=== PATIENT | female | born 1995 | race Caucasian/White ===

== ENCOUNTER 2016-11-14 17:02 | Emergency (ER) | payer OTHER ==
[2016-11-14 17:24] VITALS: BP 133/78; PULSE 89; RESP 20; TEMP 99.9
[2016-11-14] MEDS ORDERED: IBUPROFEN 600 MG TAB PO STA (17:41)
[2016-11-14] MEDS ORDERED: ACETAMINOPHEN IV (For NPO) 1,000 MG in EMPTY BAG 1 BAG IVPB STA (17:41)
--- NOTE | 2016-11-14 17:55 | ED ---
Fever HPI - General Chief Complaint: Fever Stated Complaint: fever,throat pain Time Seen by Provider: 11/14/16 17:31 Source: patient, RN notes reviewed Mode of arrival: ambulatory Limitations: no limitations - History of Present Illness Initial Comments: 21-year-old female presents to the emergency department with a chief complaint of fever. Patient states she's had a fever on and off for the past 5 days. Patient states that she went to her doctor and she was started on some ALLERGY medications at home. Patient states that she has facial pressure. Patient states that she hasn't had any nausea vomiting that has had a cough cold runny nose. Patient states she is increased facial pressure when leaning forward. Patient states that she has not had any other symptoms at this time. Patient states she was concerned due to her continued fever and facial pain so she thought that she should be evaluated. Patient denies any recent shortness of breath, chest pain, back pain, abdominal pain, nausea vomiting, numbness or tingling, dysuria or hematuria, constipation or diarrhea, headaches or visual changes, or any other current symptoms. - Related Data Home Medications Medication Instructions Recorded Confirmed Cephalexin [Keflex] 250 mg PO QID 11/14/16 11/14/16 Diphenox-Atrop 2.5-0.025 mg 1 tab PO TID PRN 11/14/16 11/14/16 [Lomotil] Loratadine [Claritin] 10 mg PO DAILY 11/14/16 11/14/16 Ondansetron [Zofran ODT] 4 mg PO Q12H PRN 11/14/16 11/14/16 Promethazine 6.25MG/5Ml [Phenergan 6.25 - 12.5 mg PO QID PRN 11/14/16 11/14/16 Syrup] Allergies Allergy/AdvReac Type Severity Reaction Status Date / Time No Known Allergies Allergy Verified 11/14/16 17:46 Review of Systems ROS Statement: Those systems with pertinent positive or pertinent negative responses have been documented in the HPI. ROS Other: All systems not noted in ROS Statement are negative. Past Medical History Past Medical History: Asthma History of Any Multi-Drug Resistant Organisms: None Reported Past Surgical History: No Surgical Hx Reported Past Psychological History: Anxiety, Depression Smoking Status: Never smoker Past Alcohol Use History: None Reported Past Drug Use History: None Reported General Exam - General Exam Comments Initial Comments: General exam: Alert, active, comfortable in no apparent distress Head: Normocephalic, mild tenderness over the frontal and bilateral maxillary sinusitis Eyes: Normal reaction of pupils, equal size, normal range of extraocular motion Ears: normal external ear canals, pink tympanic membranes with normal cone of light Nose: clear with pink turbinates Throat: no erythema or exudates with normal sized tonsils Neck: no masses, no nuchal rigidity Chest: no chest wall deformity Lungs: equal air entry with no crackles or wheeze CVS: S1 and S2 normal with no audible mumurs, regular rhythm Abdomen: no hepatosplenomegaly, normal bowel sounds, no guarding or rigidity Spine: no scoliosis or deformity Skin: no rashes Neurological: No focal deficits, tone is normal in all 4 extremities Limitations: no limitations Course Vital Signs 11/14/16 17:23 Temperature 99.9 F H Pulse Rate 89 Respiratory 20 Rate Blood Pressure 133/78 O2 Sat by Pulse 99 Oximetry Medical Decision Making - Medical Decision Making 21-year-old female presents emergency Department chief complaint of cough cold and fever. This time patient is positive for influenza B. This time we discussed continuing symptom control. We discussed return parameters and follow -up. We discussed all the patient's questions. She stated that she understood all questions have been answered. At this time the patient will be discharged home. - Lab Data Lab Results 11/14/16 11/14/16 Range/Units 18:25 18:25 Influenza Type A RNA Not Detected (Not Detectd) Influenza Type B (PCR) Detected H (Not Detectd) Group A Strep Rapid Negative (Negative) - Radiology Data Radiology results: report reviewed, image reviewed Disposition Clinical Impression: Influenza B Disposition: HOME SELF-CARE Condition: Stable Instructions: Fever in Adults (ED), Influenza (ED) Additional Instructions: Please use medication as discussed. Please follow up with family doctor if symptoms have not improved over the next two days. Please return to the emergency room if your symptoms increase or worsen or for any other concerns. Referrals: Yariel Cruz MD [Primary Care Provider] - 1-2 days Time of Disposition: 19:01
[2016-11-14] MEDS ORDERED: ACETAMINOPHEN TAB 500 MG TAB PO STA (18:22)
--- NOTE | 2016-11-14 18:32 | XR ---
EXAMINATION TYPE: XR chest 2V DATE OF EXAM: 11/14/2016 6:24 PM COMPARISON: NONE HISTORY: Cough and congestion TECHNIQUE: Frontal and lateral views of the chest are obtained. FINDINGS: Heart and mediastinum are normal. Lungs are clear. There is mild thoracic dextroscoliosis. There is no pleural effusion. Bony thorax is intact. IMPRESSION: No cardiopulmonary disease.
== END 2016-11-14 22:00 | disposition home or self-care (01) ==
LOC: EC 17:02
DX: J10.1 Influenza due to other identified influenza virus with other respiratory manifestations (principal); J45.909 Unspecified asthma, uncomplicated; Z79.899 Other long term (current) drug therapy
CPT/HCPCS: 71020; 87081; 87430; 87502; 99283

== ENCOUNTER 2017-04-02 16:50 | Emergency (ER) | payer OTHER ==
[2017-04-02 16:54] VITALS: BP 111/74; PULSE 61; RESP 14; TEMP 98.5
[2017-04-02] MEDS ORDERED: BUPIVACAINE (PF) 0.5% 30 ML VIAL SQ STA (17:12)
--- NOTE | 2017-04-02 17:20 | ED ---
ENT HPI - General Chief complaint: Dental/Oral Stated complaint: Tooth Pain Time Seen by Provider: 04/02/17 16:58 Source: patient, RN notes reviewed, old records reviewed Mode of arrival: ambulatory Limitations: no limitations - History of Present Illness Initial comments: 21-year-old female present the ED chief complaint of right lower tooth pain for the past day. She reports that she thinks that her wisdom teeth are starting to come in. She states that she's had no fever or chills or difficulty opening or swelling. He reports that the pain is severe over the lower tooth is concerned there may be infection. She states she does have an appointment to see the dental clinic for possible removal.Patient denies any recent fever, chills, shortness of breath, chest pain, back pain, abdominal pain, nausea vomiting, numbness or tingling, dysuria or hematuria, constipation or diarrhea, headaches or visual changes, or any other current symptoms - Related Data Home Medications Medication Instructions Recorded Confirmed Cephalexin [Keflex] 250 mg PO QID 11/14/16 11/14/16 Diphenox-Atrop 2.5-0.025 mg 1 tab PO TID PRN 11/14/16 11/14/16 [Lomotil] Loratadine [Claritin] 10 mg PO DAILY 11/14/16 11/14/16 Ondansetron [Zofran ODT] 4 mg PO Q12H PRN 11/14/16 11/14/16 Promethazine 6.25MG/5Ml [Phenergan 6.25 - 12.5 mg PO QID PRN 11/14/16 11/14/16 Syrup] Previous Rx's Medication Instructions Recorded Acetaminophen-Codeine 300-30mg 1 tab PO Q6H PRN #15 tablet 04/02/17 [Tylenol #3] Penicillin V Potassium [Pen Vee K] 500 mg PO QID #40 tab 04/02/17 Allergies Allergy/AdvReac Type Severity Reaction Status Date / Time No Known Allergies Allergy Verified 04/02/17 16:54 Review of Systems ROS Statement: Those systems with pertinent positive or pertinent negative responses have been documented in the HPI. ROS Other: All systems not noted in ROS Statement are negative. Past Medical History Past Medical History: Asthma History of Any Multi-Drug Resistant Organisms: None Reported Past Surgical History: No Surgical Hx Reported Past Psychological History: Anxiety, Depression Smoking Status: Never smoker Past Alcohol Use History: None Reported Past Drug Use History: None Reported General Exam - General Exam Comments Initial Comments: 21-year-old female. No acute distress. Limitations: no limitations General appearance: alert, in no apparent distress Head exam: Present: atraumatic, normocephalic, normal inspection Eye exam: Present: normal appearance, PERRL, EOMI. Absent: scleral icterus, conjunctival injection, periorbital swelling ENT exam: Present: normal exam, normal oropharynx, mucous membranes moist, other (Patient has evidence of teeth 17, 32, 116 coming through the gums. Patient reports severe pain over tooth #17.) Neck exam: Present: normal inspection. Absent: tenderness, meningismus, lymphadenopathy Respiratory exam: Present: normal lung sounds bilaterally. Absent: respiratory distress, wheezes, rales, rhonchi, stridor Cardiovascular Exam: Present: regular rate, normal rhythm, normal heart sounds. Absent: systolic murmur, diastolic murmur, rubs, gallop, clicks GI/Abdominal exam: Present: soft, normal bowel sounds. Absent: distended, tenderness, guarding, rebound, rigid Extremities exam: Present: normal inspection, full ROM, normal capillary refill. Absent: tenderness, pedal edema, joint swelling, calf tenderness Back exam: Present: normal inspection, full ROM Neurological exam: Present: alert, oriented X3, CN II-XII intact Psychiatric exam: Present: normal affect, normal mood Skin exam: Present: warm, dry, intact, normal color. Absent: rash Course Vital Signs 04/02/17 04/02/17 16:51 17:31 Temperature 98.5 F 98.5 F Pulse Rate 61 61 Respiratory 14 14 Rate Blood Pressure 111/74 111/74 O2 Sat by Pulse 100 100 Oximetry Medical Decision Making - Medical Decision Making 21-year-old female present the ED chief complaint of right lower tooth pain for the past day. She reports that she thinks that her wisdom teeth are starting to come in. She states that she's had no fever or chills or difficulty opening or swelling. He reports that the pain is severe over the lower tooth is concerned there may be infection. Patient has significant swelling and pain over tooth #17. Patient will be given bupivacaine shot. Patient discharged with antibiotics and pain medication. Given referrals for oral surgeon dental instructions. Patient understands treatment plan will comply. Return parameters were discussed. Disposition Clinical Impression: Pain, dental Disposition: HOME SELF-CARE Condition: Good Instructions: Toothache (ED) Additional Instructions: [facility] [address] [place] [address] [phone] (existing clients only) For new clients: [phone] 1st consult: $50 (includes Xrays) Usually 30% less then private dentist for visits after. [employer] Have to pay $50 for Xrays anmd rest is covered. [phone] Prescriptions: Acetaminophen-Codeine 300-30mg [Tylenol #3] 1 tab PO Q6H PRN #15 tablet PRN Reason: Pain Penicillin V Potassium [Pen Vee K] 500 mg PO QID #40 tab Referrals: Yariel Cruz MD [Primary Care Provider] - 1-2 days Leonidas August DDS [STAFF PHYSICIAN] - 1-2 days Time of Disposition: 17:18
== END 2017-04-02 17:31 | disposition home or self-care (01) ==
LOC: EC 16:50
DX: K08.89 Other specified disorders of teeth and supporting structures (principal); J45.909 Unspecified asthma, uncomplicated; Z79.899 Other long term (current) drug therapy
CPT/HCPCS: 99283